=== PATIENT | male | born 1980 | race Caucasian/White ===

== ENCOUNTER 2020-10-25 10:05 | Emergency (ER) | payer MEDICARE ==
[2020-10-25] MEDS ORDERED: PREDNISONE 20MG20 MG PO (12:13)
== END 2020-10-25 12:25 | disposition home or self-care (01) ==
LOC: FER 10:05
DX: L50.9 Urticaria, unspecified (principal); F17.210 Nicotine dependence, cigarettes, uncomplicated; Z88.8 Allergy status to other drugs, medicaments and biological substances
CPT/HCPCS: 99283; J7512